=== PATIENT | male | born 1945 | race Caucasian/White ===

== ENCOUNTER 2017-10-10 02:05 | Emergency (ER) | payer OTHER ==
[~2017-10-10] VITALS: Ht 175.3 cm; Wt 85.0 kg
[~2017-10-10 02:05] MED LIST: 1-ME1LIQ PO; AMBI5TAB PO; ASPI81TA82 PO; DOCU100T9 PO; GEMF600T PO; HYDR12.56 PO; LANTUSP SQ; LEVO50TA51 PO; METH500T3 PO; METO25 PO; NOVOLOGP2 SQ; POTA-243 PO; PROS5TAB2 PO; TAB-TAB PO; TERA2CAP3 PO; TRAZ100T50 PO
[2017-10-10 02:14] VITALS: BP 220/109; PULSE 92; RESP 18; TEMP 98.2; O2SAT 97
[2017-10-10] MEDS ORDERED: OMEP20TA93 PO (02:29)
[2017-10-10] MEDS ORDERED: SIMV80TA PO (02:29)
[2017-10-10] MEDS ORDERED: FERR325T18 PO (02:29)
[2017-10-10] MEDS ORDERED: CLAR10CA3 PO (02:29)
[2017-10-10] MEDS ORDERED: CIPR-9 PO (02:29)
[2017-10-10] MEDS ORDERED: OXYC1CAP PO (02:29)
[2017-10-10] MEDS ORDERED: LANTINJ SQ (02:29)
[2017-10-10] MEDS ORDERED: LANTUS2P SQ (02:29)
[2017-10-10] MEDS ORDERED: DOCU100C15 PO (02:29)
[2017-10-10] MEDS ORDERED: MORP-44 PO (02:29)
[2017-10-10] MEDS ORDERED: LISI40TA PO (02:29)
--- NOTE | 2017-10-10 02:31 | PD ---
HPI Chief Complaint: General Weakness Time Seen by Provider: 02:24 Travel History International Travel<30 days: No Contact w/Intl Traveler<30days: No Traveled to known affect area: No History of Present Illness HPI The patient is a 71 year old male who presents to the [facility] emergency department with a history of generalized weakness that began just prior to going to bed last night. The patient reports that he got up to go to the bathroom to urinate and fell because of the weakness. He reports that he had difficulty getting up off of the ground. Ambulance services were called the patient was brought in to the emergency department for evaluation and treatment. The patient denies having any pain. He is unsure whether he had his head, however ambulance services report that he did hit his head on the bed stand and also hit his left elbow. The patient was noted to have an abrasion to the left elbow. The patient resides at home with his family. The patient does have a history of short-term memory loss. The patient is normally oriented to person and place at baseline, however not time or situation. According to ambulance services, the patient has a left groin abnormality that is going to be operated on in the morning in [place]. Unfortunately the patient is unable to provide any information regarding what kind of abnormality he has. He reports that he has severe pain in the left groin that has been present for 2 weeks. He reports that the pain keeps him up at night. Otherwise on review of systems, the patient denies having any known recent fevers, cough or congestion, neck pain, chest pain, shortness of breath, abdominal pain, vomiting, diarrhea, urinary symptoms, numbness or tingling to his arms or legs, one-sided weakness, slurred speech, facial droop, or vision changes. [facility] Past Medical History Narrative Medical The patient's past medical history is significant for coronary artery disease status post myocardial infarction, hypertension, hyperlipidemia, diabetes mellitus, history of chronic pain syndrome, hypothyroid disorder, anxiety disorder, posttraumatic stress disorder Arthritis: Yes (GENERALIZED; RHEUMATOID) Autoimmune Disease: Yes Blood Disorders: No Bipolar Disorder: Yes Anxiety: No Depression: Yes Cancer: Yes (SKIN- ON BACK) Cardiovascular Problems: Yes High Cholesterol: Yes Chemotherapy: No Coronary Artery Disease: Yes Diabetes: Yes Patient Takes Glucophage: No Diminished Hearing: Yes Endocrine: Yes Gastrointestinal Disorders: Yes GERD: Yes Genitourinary: Yes (ARF; HYPERKALEMIA) Hypertension: Yes Immune Disorder: No Implanted Vascular Access Dvce: No Kidney Stones: Yes Musculoskeletal: Yes Neurologic: Yes (NEUROPATHY) Psychiatric: Yes (BIPOLAR) Reproductive: No Respiratory: Yes Immunizations Current: Yes Myocardial Infarction: Yes (DECEMBER 2008) Radiation Therapy: No Renal Failure: Yes (ACUTE RENAL FAILURE-01/08/09) Seizures: Yes (HYPOGLYCEMIC-IN PAST) Thyroid Disease: No Tetanus Vaccination: Unknown Influenza Vaccination: No Past Surgical History Narrative Surgical The patient's past surgical history is significant for TURP, colon cancer resection, lower extremity injury in the . Other Surgery: Yes (TURP) Social History Alcohol Use: No Tobacco Use: No Substance Use: No Allergies-Medications (Allergen,Severity, Reaction): Coded Allergies: cholestyramine (Unverified Allergy, Severe, 10/10/17) metformin (Unverified Allergy, Severe, 10/10/17) Reported Meds & Prescriptions Reported Meds & Active Scripts Active Reported Simvastatin 80 Mg Tab 80 Mg PO DAILY Oxycodone (Oxycodone HCl) 5 Mg Cap 5 Mg PO Q8H PRN Omeprazole 20 Mg Tab 20 Mg PO DAILY Morphabond ER 12 HR (Morphine Sulfate) 30 Mg Tab 30 Mg PO Q12H Claritin (Loratadine) 10 Mg Cap 10 Mg PO DAILY Lisinopril 40 Mg Tab 40 Mg PO DAILY Lantus Solostar Pen Inj (Insulin Glargine) 300 Unit/3 Ml Pen 1 Units SQ Lantus Inj (Insulin Glargine) 1,000 Unit/10 Ml Vial 10 Units SQ HS Ferrous Sulfate 325 Mg (65 Mg Iron) Tablet 325 Mg PO DAILY Docusate Sodium 100 Mg Cap 100 Mg PO BID Cipro (Ciprofloxacin HCl) 500 Mg Tab 500 Mg PO BID Review of Systems Except as stated in HPI: all other systems reviewed are Neg General / Constitutional: No: Fever Eyes: No: Visual changes HENT: No: Headaches Cardiovascular: No: Chest Pain or Discomfort Respiratory: No: Shortness of Breath Gastrointestinal: No: Nausea, Vomiting, Diarrhea, Abdominal Pain Genitourinary: No: Dysuria Musculoskeletal: Positive: Myalgias, Pain Skin: No Rash Neurologic: Positive: Weakness (Generalized weakness), No: Focal Abnormalities , Change in Mentation, Slurred Speech, Sensory Disturbance Psychiatric: No: Depression Endocrine: No: Polydipsia Hematologic/Lymphatic: No: Easy Bruising Physical Exam Narrative General: The patient is a well-developed well-nourished male in no acute distress. Head and Neck exam: Head is normocephalic atraumatic. Eyes: EOMI, pupils are equal round and reactive to light. Nose: Midline septum with pink mucous membranes Mouth: Dentition unremarkable. Moist mucus membranes. Posterior oropharynx is not erythematous. No tonsillar hypertrophy. Uvula midline. Airway patent. Neck: No palpable lymphadenopathy. No nuchal rigidity. No thyromegaly. Cardiovascular: Regular rate and rhythm without murmurs, gallops, or rubs. Lungs: Clear to auscultation bilaterally. No wheezes, rhonchi, or rales. Abdomen: Soft, without tenderness to palpation in all 4 quadrants of the abdomen. No guarding, rebound, or rigidity. Normal bowel sounds are audible. No tenderness on palpation of McBurney's point. Negative Greco sign. Extremities: No clubbing, cyanosis, or edema. 2+ pulses in all 4 extremities. The patient reports having left groin pain. The patient has no palpable hernia. The patient has no erythema or ecchymosis noted. No extremity shortening or crepitus. Back: No spinous process tenderness to palpation. No costovertebral angle tenderness to palpation. Neurologic Exam: Cranial nerves 2-12 were intact on exam. Strength is 5/5 in all 4 extremities. No sensory deficits noted. Skin Exam: No rash noted. Intact skin that is warm and dry. Data Data Last Documented VS Vital Signs Date Time Temp Pulse Resp B/P (MAP) Pulse Ox O2 Delivery O2 Flow Rate FiO2 10/10/17 02:34 163/93 (116) 10/10/17 02:34 18 10/10/17 02:14 98.2 92 97 Orders Orders Electrocardiogram (10/10/17 02:24) Complete Blood Count With Diff (10/10/17 02:24) Comprehensive Metabolic Panel (10/10/17 02:24) Creatine Kinase (Cpk) (10/10/17 02:24) Ckmb (Isoenzyme) Profile (10/10/17 02:24) Troponin I (10/10/17 02:24) Prothrombin Time / Inr (Pt) (10/10/17 02:24) Act Partial Throm Time (Ptt) (10/10/17 02:24) Lipase (10/10/17 02:24) Urinalysis - C+S If Indicated (10/10/17 02:24) Magnesium (Mg) (10/10/17 02:24) Thyroid Stimulating Hormone (10/10/17 02:24) Chest, Single Ap (10/10/17 02:24) Iv Access Insert/Monitor (10/10/17 02:24) Ecg Monitoring (10/10/17 02:24) Oximetry (10/10/17 02:24) Hip, Uni(Ap&Lat) W Ap Pelvis (10/10/17 02:24) Ct Brain W/O Iv Contrast(Rout) (10/10/17 02:24) Ct Cerv Spine W/O Contrast (10/10/17 02:24) CKMB (10/10/17 02:30) CKMB% (10/10/17 02:30) Urine Culture (10/10/17 03:15) Sodium Chlorid 0.9% 500 Ml Inj (Ns 500 M (10/10/17 03:45) Ceftriaxone Inj (Rocephin Inj) (10/10/17 03:45) Labs Laboratory Tests Test 10/10/17 02:30 10/10/17 03:15 White Blood Count 9.5 TH/MM3 Red Blood Count 4.50 MIL/MM3 Hemoglobin 13.6 GM/DL Hematocrit 38.8 % Mean Corpuscular Volume 86.3 FL Mean Corpuscular Hemoglobin 30.1 PG Mean Corpuscular Hemoglobin Concent 34.9 % Red Cell Distribution Width 15.1 % Platelet Count 166 TH/MM3 Mean Platelet Volume 7.2 FL Neutrophils (%) (Auto) 73.8 % Lymphocytes (%) (Auto) 13.2 % Monocytes (%) (Auto) 7.6 % Eosinophils (%) (Auto) 5.0 % Basophils (%) (Auto) 0.4 % Neutrophils # (Auto) 7.0 TH/MM3 Lymphocytes # (Auto) 1.3 TH/MM3 Monocytes # (Auto) 0.7 TH/MM3 Eosinophils # (Auto) 0.5 TH/MM3 Basophils # (Auto) 0.0 TH/MM3 CBC Comment DIFF FINAL Differential Comment Prothrombin Time 12.9 SEC Prothromb Time International Ratio 1.3 RATIO Activated Partial Thromboplast Time 25.9 SEC Blood Urea Nitrogen 14 MG/DL Creatinine 1.25 MG/DL Random Glucose 130 MG/DL Total Protein 8.2 GM/DL Albumin 3.5 GM/DL Calcium Level 9.1 MG/DL Magnesium Level 1.9 MG/DL Alkaline Phosphatase 85 U/L Aspartate Amino Transf (AST/SGOT) 64 U/L Alanine Aminotransferase (ALT/SGPT) 46 U/L Total Bilirubin 0.7 MG/DL Sodium Level 136 MEQ/L Potassium Level 5.6 MEQ/L Chloride Level 105 MEQ/L Carbon Dioxide Level 22.6 MEQ/L Anion Gap 8 MEQ/L Estimat Glomerular Filtration Rate 57 ML/MIN Total Creatine Kinase 249 U/L Creatine Kinase MB 1.4 NG/ML Troponin I LESS THAN 0.02 NG/ML Lipase 107 U/L Thyroid Stimulating Hormone 3rd Gen 2.520 uIU/ML Urine Color YELLOW Urine Turbidity CLOUDY Urine pH 6.0 Urine Specific [place] 1.015 Urine Protein 30 mg/dL Urine Glucose (UA) 300 mg/dL Urine Ketones NEG mg/dL Urine Occult Blood SMALL Urine Nitrite NEG Urine Bilirubin NEG Urine Urobilinogen LESS THAN 2.0 MG/DL Urine Leukocyte Esterase LARGE Urine RBC 18 /hpf Urine WBC /hpf Urine WBC Clumps FEW Urine Squamous Epithelial Cells 2 /hpf Urine Bacteria FEW /hpf Urine Mucus FEW /lpf Microscopic Urinalysis Comment CULTURE INDICATED MDM Medical Decision Making Medical Screen Exam Complete: Yes Emergency Medical Condition: Yes Medical Record Reviewed: Yes Differential Diagnosis Differential diagnosis in this patient includes dehydration, versus infectious process such as UTI, versus medication side effect, versus intracranial abnormality Narrative Course During the course of the patient's emergency department visit, the patient's history, examination, and differential diagnosis were reviewed with the patient. The patient was placed on a awake overnight monitor with oximetry and frequent blood pressure monitoring. The patient had IV access obtained and blood work sent for analysis. The patient had an EKG done on arrival that shows a sinus rhythm heart rate of 93, marked left axis deviation, intraventricular conduction delay represented by a QRS duration of 113 ms, QTC [address] segment elevation The patient was initially provided normal saline at 500 mL bolus 1. The patient's laboratory studies were reviewed and remarkable for a white count of 9.5, hemoglobin 13.6, platelets 166 with neutrophils 73.8. CMP is remarkable for a potassium of 5.6, however and with normal renal function, glucose 130, AST 64, cardiac enzymes within normal limits, lipase 107, TSH 2.52 , PT 12.9, INR 1.3, PTT 25.9, urinalysis shows 30 protein 300 glucose small blood large leukocyte esterase 18 RBCs, innumerable WBCs with clumps and bacteria, culture indicated. The patient was given Rocephin 1 g IV. Radiology studies were reviewed and remarkable for a chest x-ray, pelvis and left hip x-ray that showed no acute abnormality. CT scan of the brain showed atrophy, no other acute abnormality. CT scan of the C-spine shows degenerative changes, no other acute abnormality. The patient was reexamined. The patient was more awake and alert. The patient' s daughter was at the bedside and was able to provide some history. She reports that she checked his pill box and an extra Ambien was missing, therefore she is concerned that he may have taken an extra dose. Otherwise, the patient denies taking any extra doses of pain medicine. I explained that the patient does have a urinary tract infection. The patient's daughter reports that he has problems with recurrent urinary tract infections that have not been responding to antibiotic. In fact, she reports that today he has an appointment with the urologist in [place] for cystoscopy to further evaluate. The patient will be discharged home to follow-up with the urologist as previously scheduled for cystoscopy later this morning. A prescription for antibiotic was held at this point as the patient's family reports that they prefer to follow-up with the urologist today for instruction regarding continuing on antibiotic. The patient is resting comfortably and feels better, is alert and in no distress. The patient's results and examination findings were discussed with the patient. The repeat examination is unremarkable and benign. The history, exam, diagnostic testing, and current condition do not suggest any significant pathology to warrant further testing, continued ED treatment, admission, or surgical evaluation at this point. The vital signs have been stable. The patient does not have uncontrollable pain, intractable vomiting, or other significant symptoms. The patient's condition is stable and appropriate for discharge. The patient will pursue further outpatient evaluation with a primary care physician or other designated or consulting physician as indicated in the discharge instructions. The patient expressed understanding and was agreeable with this plan. Diagnosis Primary Impression: Generalized weakness Additional Impressions: Medication side effect Urinary tract infection Qualified Codes: N39.0 - Urinary tract infection, site not specified; R31.9 - Hematuria, unspecified Referrals: Primary Care Physician 2 days Urologist Patient Instructions: General Instructions, Urinary Tract Infection in Men (ED) , Weakness (ED) Med/Other Pt SpecificInfo: No Change to Meds Disposition: 01 DISCHARGE HOME Condition: Stable Ashley Stafford MD Oct 10, 2017 02:31
[2017-10-10 02:34] VITALS: BP 163/93; RESP 18
[2017-10-10 02:45] LABS: BASOPHIL % 0.4 % (0.0-2.0); EOSINOPHIL # 0.5 TH/MM3 (0-0.4); HEMATOCRIT 38.8 % (39.0-51.0); HEMOGLOBIN 13.6 GM/DL (13.0-17.0); LYMPH % 13.2 % (9.0-44.0); LYMPHOCYTE # 1.3 TH/MM3 (1.0-4.8); MEAN CELL VOLUME 86.3 FL (80.0-100.0); MEAN CORPUSCULAR HEMOGLOBIN 30.1 PG (27.0-34.0); MEAN CORPUSCULAR HGB CONC 34.9 % (32.0-36.0); MEAN PLATELET VOLUME 7.2 FL (7.0-11.0); MONO % 7.6 % (0.0-8.0); MONOCYTE # 0.7 TH/MM3 (0-0.9); NEUT % 73.8 % (16.0-70.0); PLATELET COUNT 166 TH/MM3 (150-450); RED CELL DISTRIBUTION WIDTH 15.1 % (11.6-17.2); WHITE BLOOD COUNT 9.5 TH/MM3 (4.0-11.0)
[2017-10-10 02:52] LABS: INTERNATIONAL NORMALIZED RATIO 1.3 RATIO; PROTHROMBIN TIME - PATIENT 12.9 SEC (9.8-11.6)
--- NOTE | 2017-10-10 03:01 | RADRPT ---
EXAM DATE/TIME: 10/10/2017 02:42 [facility] COMPARISON: No previous studies available for comparison. INDICATIONS : Cough. MEDICAL HISTORY : Hypertension. Myocardial infarction. Coronary artery disease. SURGICAL HISTORY : None. ENCOUNTER: Initial ACUITY: 1 day PAIN SCORE: 0/10 LOCATION: Bilateral chest FINDINGS: A single view of the chest demonstrates the lungs to be symmetrically aerated without evidence of mas s, infiltrate or effusion. The cardiomediastinal contours are unremarkable. Osseous structures are intact. CONCLUSION: No evidence of acute cardiopulmonary disease. Ney Dodson MD on October 10, 2017 at 3:00 Board Certified Radiologist. This report was verified electronically.
--- NOTE | 2017-10-10 03:03 | RADRPT ---
EXAM DATE/TIME: 10/10/2017 02:39 [facility] COMPARISON: No previous studies available for comparison. INDICATIONS : Left hip pain post fall. MEDICAL HISTORY : None. SURGICAL HISTORY : None. ENCOUNTER: Initial ACUITY: 1 day PAIN SCORE: 4/10 LOCATION: Left pelvis hip. FINDINGS: Bony pelvis is intact and has normal morphology. Mild osteoarthritis of both hips. There is no fractu re or subluxation. Radiographic appearance of the soft tissues within normal limits. CONCLUSION: Intact pelvis and left hip. Ney Dodson MD on October 10, 2017 at 3:01 Board Certified Radiologist. This report was verified electronically.
[2017-10-10 03:04] LABS: ALBUMIN 3.5 GM/DL (3.4-5.0); ALT (GPT) 46 U/L (12-78); AST (GOT) 64 U/L (15-37); BICARBONATE 22.6 MEQ/L (21.0-32.0); BLOOD UREA NITROGEN 14 MG/DL (7-18); CALCIUM 9.1 MG/DL (8.5-10.1); CHLORIDE 105 MEQ/L (98-107); CREATININE 1.25 MG/DL (0.60-1.30); GLOMERULAR FILTRATION RATE 57 ML/MIN (>89); GLUCOSE,RANDOM 130 MG/DL (74-106); MAGNESIUM 1.9 MG/DL (1.5-2.5); SODIUM (NA) 136 MEQ/L (136-145)
[2017-10-10 03:08] LABS: ALKALINE PHOSPHATASE 85 U/L (45-117); TOTAL BILIRUBIN ADULT 0.7 MG/DL (0.2-1.0); TOTAL PROTEIN 8.2 GM/DL (6.4-8.2); TROPONIN I LESS THAN 0.02 NG/ML (0.02-0.05)
[2017-10-10 03:35] LABS: BACTERIA, URINE FEW /hpf; BILIRUBIN, URINE NEG (NEG); BLOOD, URINE SMALL (NEG); GLUCOSE,URINE 300 mg/dL (NEG); KETONE, URINE NEG (NEG); MUCUS URINE FEW /lpf (OCC); NITRITE,URINE NEG (NEG); SQUAMOUS EPITHELIAL CELL URINE 2 /hpf (0-5); URINE COLOR YELLOW (YELLW/STRAW); URINE LEUKOCYTE ESTERASE LARGE (NEG); WHITE BLOOD CELL CLUMPS FEW
[2017-10-10] MEDS ORDERED: cefTRIAXone INJ 1,000 MG in SODIUM CHLORIDE 0.9% INJ 100 ML IV ONE (03:45)
[2017-10-10] MEDS ORDERED: SODIUM CHLORID 0.9% 500 ML INJ 500 ML IV ONE (03:45)
--- NOTE | 2017-10-10 03:52 | RADRPT ---
EXAM DATE/TIME: 10/10/2017 03:15 [facility] COMPARISON: No previous studies available for comparison. INDICATIONS : Trauma; fall to knees. RADIATION DOSE: 56.35 CTDIvol (mGy) MEDICAL HISTORY : Cardiovascular disease. Hypertension. Renal insufficiency, chronic. SURGICAL HISTORY : None. ENCOUNTER: Initial ACUITY: 1 day PAIN SCALE: 5/10 LOCATION: cranial TECHNIQUE: Multiple contiguous axial images were obtained of the head. Using automated exposure control and adj ustment of the mA and/or kV according to patient size, radiation dose was kept as low as reasonably a chievable to obtain optimal diagnostic quality images. DICOM format image data is available electro nically for review and comparison. FINDINGS: CEREBRUM: The ventricles are normal for age. No evidence of midline shift, mass lesion, hemorrhage or acute in farction. No extra-axial fluid collections are seen. There is atrophy. POSTERIOR FOSSA: The cerebellum and brainstem are intact. The 4th ventricle is midline. The cerebellopontine angle i s unremarkable. EXTRACRANIAL: The visualized portion of the orbits is intact. SKULL: The calvaria is intact. No evidence of skull fracture. CONCLUSION: No acute intracranial abnormality. Atrophy. Ney Dodson MD on October 10, 2017 at 3:50 Board Certified Radiologist. This report was verified electronically.
--- NOTE | 2017-10-10 03:54 | RADRPT ---
EXAM DATE/TIME: 10/10/2017 03:15 [facility] COMPARISON: No previous studies available for comparison. INDICATIONS : Trauma; fall to knees. RADIATION DOSE: 24.27 CTDIvol (mGy) MEDICAL HISTORY : Cardiovascular disease. Hypertension. Renal insufficiency, chronic. SURGICAL HISTORY : None. ENCOUNTER: Initial ACUITY: 1 day PAIN SCALE: 5/10 LOCATION: Bilateral neck TECHNIQUE: Volumetric scanning of the cervical spine was performed. Multiplanar reconstructions in the sagittal, coronal and oblique axial planes were performed. Using automated exposure control and adjustment o f the mA and/or kV according to patient size, radiation dose was kept as low as reasonably achievable to obtain optimal diagnostic quality images. DICOM format image data is available electronically f or review and comparison. FINDINGS: Cervical spine alignment is normal. Vertebral bodies have normal height. No cortical break or trabecu lar disruption. Chronic nuchal ossification noted. There is moderate uncovertebral and facet osteoarthritis essentially throughout, but especially C5/C6 and C6/C7 where there is also moderate disc space narrowing and mild to moderate foraminal stenosis, mostly on the left. There is mild right foraminal stenosis at C4/C5. CONCLUSION: Intact cervical spine. Degenerative changes as above. Ney Dodson MD on October 10, 2017 at 3:51 Board Certified Radiologist. This report was verified electronically.
--- NOTE | 2017-10-10 22:21 | EKG ---
Date Performed: 10/10/2017 Time Performed: 02:16:46 PTAGE: 71 years EKG: Sinus rhythm MARKED LEFT AXIS DEVIATION MODERATE INTRAVENTRICULAR CONDUCTION DELAY NONSPECIFIC T-WAVE ABNORMALITY ABNORMAL ECG PREVIOUS TRACING : 08/12/2009 00.19 Since the previous tracing, no significant change noted DOCTOR: Karen Ibarra Interpretating Date/Time 10/10/2017 22:20:12
== END 2017-10-10 05:16 | disposition home or self-care (01) ==
LOC: NEPE 02:05
DX: R53.1 Weakness (principal); N39.0 Urinary tract infection, site not specified; B96.5 Pseudomonas (aeruginosa) (mallei) (pseudomallei) as the cause of diseases classified elsewhere; R94.31 Abnormal electrocardiogram [ECG] [EKG]; S50.312A Abrasion of left elbow, initial encounter; S09.90XA Unspecified injury of head, initial encounter; E03.9 Hypothyroidism, unspecified; E78.00 Pure hypercholesterolemia, unspecified; I12.9 Hypertensive chronic kidney disease with stage 1 through stage 4 chronic kidney disease, or unspecified chronic kidney disease; K21.9 Gastro-esophageal reflux disease without esophagitis; Z88.5 Allergy status to narcotic agent; H91.90 Unspecified hearing loss, unspecified ear; I25.10 Atherosclerotic heart disease of native coronary artery without angina pectoris; W01.190A Fall on same level from slipping, tripping and stumbling with subsequent striking against furniture, initial encounter; Y92.009 Unspecified place in unspecified non-institutional (private) residence as the place of occurrence of the external cause
CPT/HCPCS: 70450; 71045; 72125; 73502; 80053; 81001; 82550; 82552; 83690; 83735; 84443; 84484; 85025; 85610; 85730; 87077; 87086; 87186; 93005; 96365; 99285; J0696; J7040